=== PATIENT | female | born 1955 | race Caucasian/White ===

== ENCOUNTER 2023-06-03 12:34 | Outpatient (CLI) | payer BC, SELFPAY ==
--- NOTE | 2023-06-03 13:00 | CRLHL7_ITS ---
For Patients: As a result of the Century Cures Act, medical imaging exams and procedure reports are released immediately into your electronic medical record. You may view this report before your referring provider. If you have questions, please contact your health care provider. INDICATION: Right leg radiculopathy. COMPARISON: None. TECHNIQUE: Sagittal T1, T2, and STIR sequences. Axial T1 and T2 weighted sequences. FINDINGS: Degenerative grade 1 anterolisthesis of L4 on L5 measures approximately 4 mm. Grade 1 anterolisthesis of L5 on S1 measures approximately 4 mm secondary to bilateral pars defects. Otherwise, normal alignment. No fractures. No vertebral body loss of height. No ligamentous injury. No suspicious osseous lesions. Normal conus terminates at L1-2. T12-L1 L1-2: No spinal canal or neural foraminal narrowing. L2-3: Disc degeneration posterior disc bulge. No narrowing of spinal canal. No neural foraminal narrowing. L3-4: Disc degeneration. No narrowing of spinal canal. No neural foraminal narrowing. L4-5: Grade 1 anterolisthesis. Disc degeneration posterior disc bulge measures approximately 4 mm short axis. There is a superimposed right subarticular disc extrusion measures approximately 7 mm in diameter with 9 mm of cephalad migration. Mild narrowing of spinal canal. Disc extrusion may impinge upon the traversing portion of the right L4 nerve root. Oblique orientation of bilateral foramina with mild narrowing of the right neural foramen. No narrowing of the left neural foramen. L5-S1: Grade 1 anterolisthesis. Disc degeneration posterior disc bulge. No narrowing of spinal canal. No impingement of the traversing S1 nerve roots. Mild narrowing of bilateral foramina. Mild facet arthropathy. Normal visualized SI joints. Normal paraspinal soft tissues. IMPRESSION: 1. Degenerative grade 1 anterolisthesis of L4 on L5. Grade 1 anterolisthesis of L5 on S1 with associated bilateral pars defects. 2. Otherwise, normal alignment. No fractures 3. Lumbar spondylosis. 4. At L4-5, disc degeneration and posterior disc bulge. Right subarticular disc extrusion with cephalad migration. Mild narrowing of the spinal canal. Potential impingement upon the traversing portions of the right L4 nerve root. Mild narrowing of the right neural foramina 5. At L5-S1, mild narrowing of the bilateral neural foramina Dictated by Cheng Cowart MD @ 06/04/2023 8:44:14 AM (Electronically Signed)
== END 2023-06-03 12:35 | disposition home or self-care (01) ==
PROVIDERS: PCP Emergency Medicine; Visit Provider Family Medicine
DX: M54.16 Radiculopathy, lumbar region (principal); M47.896 Other spondylosis, lumbar region; M51.26 Other intervertebral disc displacement, lumbar region; M51.27 Other intervertebral disc displacement, lumbosacral region; M79.604 Pain in right leg
CPT/HCPCS: 72148

== ENCOUNTER 2023-06-10 13:33 | Outpatient (RCR) | payer BC, SELFPAY ==
--- NOTE | 2023-06-11 15:03 | PT.OPE ---
[facility] [place] [facility] PT [facility] Eval Start: 06/10/23 16:09 Freq: Status: Active Protocol: Document 06/10/23 16:09 NEO (Rec: 06/10/23 16:12 CELSOVirgie [id number]) E-signed By Mehrdad Zayas DPT, MS Physical Therapy Outpatient Evaluation Insurance Information Recert Due Date 09/08/23 Insurance Name Medicare B,Blue Cross/[employer] Shield Insurance Information/Comments [employer] Medical Diagnosis Radiculopathy, lumbosacral region Treating Diagnosis B LS pain with B-sided (L>R) LS radicular sxs, imbalance, decreased LS and LE flexibility, and B LE and core weakness Subjective Subjective Pt presents to PT with c/o acute onset of R-sided radicular sxs over the past 3 weeks of insidious origin while cleaning her house. Minimal LS pain with sxs initially presenting as severe shooting with a cold sensation down her R lateral and posterior LE down to her Achilles tendon. Sxs have improved with increased activity levels and prednisone treatment, but she only has 1 -2 days left of pills. Pain currently in her R buttock with no sxs distal to her knee over the past few days. Sxs worst at rest. Scheduled for a cortisone injection on and not sure what PT will be able to accomplish prior to this. MRI on 06/04 found: ?1. Degenerative grade 1 anterolisthesis of L4 on L5. Grade 1 anterolisthesis of L5 on S1 with associated bilateral pars defects. 2. At L4-5, disc degeneration and posterior disc bulge. Right subarticular disc extrusion with cephalad migration. Mild narrowing of the spinal canal. Potential impingement upon the traversing portions of the right L4 nerve root. Mild narrowing of the right neural foramina.? Denies hx of LS pain, bowel or bladder changes with no incidents of drop foot. Denies other significant PMH. AGGR factors: extended standing, sleeping, sitting and driving. ALLEV factors: prednisone, movement. Pt hopes to resolve sxs to return to her active lifestyle. Pain Comments -03/14 Current Work Status Retired Preferred Name Denisa Precautions Therapy Limitations/Systems Review Not Limited Objective Functional Test Performed & Score Modified OSWESTRY: 46% Assessment Assessment/Impression Pt displays LS flex directional preference of movement with elevated radicular sxs with LS ext consistent with MRI finding of R L4-5 disc bulge. Negative slump testing but position increased cold sensation in her R LE. No repetitive motions, stretching, trial of manual R LE traction or NuStep resulted in change in R buttock sxs. Good response to stretching and strengthening exercises with no elevation in sxs. She will benefit from continued skilled therapy to address these limitations. Primary Functional Limitations Extended standing, sleeping, sitting and driving Plan of Care Rehabilitation Potential Excellent Physical Therapy Goals Short-term goals to be completed in 4 weeks: 1. Pt will display improved B LE muscular strength as evidenced by performing >10 SLR of good quality to improve quality of gait. 2. Pt will report improved quality of sleep waking <2x per night due to R LE sxs. Long-term goals to be completed in 10 weeks: 1. Pt will be independent and compliant with HEP 2. Pt will display improved B hip flex, ABD and ext, and abdominal strength of >4/5 to improve tolerance to work activities. 3. Pt will report improved tolerance to sitting >15 min with no elevation in LS radicular sxs to improve jemma to driving and daily activities. 4. Pt will report >75% improvement in modified OSWESTRY questionnaire to significantly improve tolerance to functional activities. Coordination/Communication With Referral Source Treatment Plan/Direct Interventions Joint Mobilization,Manual Therapy,Neuromuscular Re-ed, Therapeutic Exercises,Traction (Mechanical) Frequency/Duration 1x per week for at least 6-10 visits, decreasing frequency as able. Patient Will Be Discharged From Therapy Completion of LTG(s),Skills Plateau,Independent w/HEP, Independently Progressing Evaluation Billing Untimed Code Treatment Minutes 26 Complexity Moderate Certification Information Initial Certification Date 06/10/23 Ending Certification Date 09/08/23 Provider Signature Shows Agreement With POC & Medical Necessity Physician Signature & Date Requested Please Sign/Date Here Physician Comment/Change : Physician NPI Number #
== END 2023-09-02 15:57 | disposition home or self-care (01) ==
PROVIDERS: PCP Emergency Medicine; Visit Provider Emergency Medicine
DX: M54.17 Radiculopathy, lumbosacral region (principal); M54.59 Other low back pain; R26.81 Unsteadiness on feet; M62.81 Muscle weakness (generalized); Z51.89 Encounter for other specified aftercare
CPT/HCPCS: 97110; 97162